=== PATIENT | male | born 1940 | race Caucasian/White ===

== ENCOUNTER 2016-07-31 19:03 | Inpatient (IN) | payer MEDICARE, BC ==
[2016-07-31 20:37] LABS: CHLORIDE,CL 102 mmol/L (98-107); SODIUM,NA 137 mmol/L (136-145)
[2016-07-31] MEDS ORDERED: cefTRIAXone 1 GM Vial IVPUSH ONE ×2 (21:24→21:29)
[2016-07-31] MEDS ORDERED: Azithromycin 250 MG Tab PO ONE ×2 (21:24→21:28)
[2016-07-31] MEDS ORDERED: Acetaminophen 325 MG Tab PO PRN (21:48)
[2016-07-31] MEDS ORDERED: Simethicone 80 MG Tab.Chew PO PRN (22:14)
[2016-07-31] MEDS ORDERED: Prochlorperazine 5 MG Tab PO PRN (22:14)
[2016-07-31] MEDS ORDERED: Nitroglycerin 0.4 MG Tab.SL SL PRN (22:14)
[2016-07-31] MEDS ORDERED: Tobramycin 0.3% Ophth Drops 5 ML Bottle EYEBOTH SCH (22:15)
[2016-07-31] MEDS ORDERED: Bisacodyl 10 MG Supp RECTAL SCH (22:15)
--- NOTE | 2016-07-31 22:34 | PCM.HP ---
H&P History of Present Illness - General Date of Service: 07/31/16 Admit Problem/Dx: Admission Diagnosis/Problem Admission Diagnosis/Problem Pneumonia Source of Information: Family, Old records, Provider - History of Present Illness Initial Comments - Free Text/Narative: 75 yo male admitted to acute care from the ER for weakness and pneumonia. Patient presented to the ER with his for concerns of weakness and decreased appetite. Work-up in the ER revealed a WBC of 33.9 and HGB of 8.4. He is seen at the [facility] in [place] last week for multiple myeloma. Received a Neulasta injection at that time. CXR did reveal a small infiltrate in the LLL for which he received a dose of Ropcehin 1 g and Azithromycin 500 mg in the ER. states he did have a little cough the last 2 days but did not cough much today. No fevers/chills or SOB. Denies congestion or rhinorrhea. No sick contacts. UA needs collected as he was unable to go in the ER. Weakness has been progressing for about 6 weeks. Did have a fall 2 months ago that resulted in a laceration to the forehead. This has healed well. No other falls since. Appetite has been decreased. Creatinine is up slightly from his lab work on 07/25. It is up to 1.3 today when it was 1.06 last week. PMH significant for MM, HTN, CAD, and opiate induced constipation. Patient was started on a clinical trial of Revlimid in 2005. Takes this medication at bedtime. unsure if this needs reported to [facility] or if he needs to discontinue. Dr. Sanders is his regular oncologist. Onset of Symptoms: Reports: gradual Duration of Symptoms: Reports: Week(s): (several) - Related Data Allergies/Adverse Reactions: Allergies Allergy/AdvReac Type Severity Reaction Status Date / Time clopidogrel bisulfate Allergy Itching Verified 07/31/16 19:50 [From Plavix] latex Allergy Itching Verified 07/31/16 19:50 levofloxacin [From Levaquin] Allergy Muscle Verified 07/31/16 19:50 Aches ticlopidine HCl [From Ticlid] Allergy Cannot Verified 07/31/16 19:50 Remember Home Medications: Home Meds Acetaminophen [Acetaminophen Extra Strength] 1,000 mg PO ASDIRECTED PRN [History] Calcium Carbonate [Calcium] 500 mg PO BID 03/14/13 [History] Gabapentin [Neurontin] 600 mg PO BEDTIME 03/14/13 [History] LORazepam 0.5 mg PO Q8H PRN 03/14/13 [History] Multivitamin [Multi-Vitamin Daily] 1 each PO DAILY 03/14/13 [History] Nitroglycerin [Nitrostat] 0.3 mg SL ASDIRECTED PRN 03/14/13 [History] Prochlorperazine [Compazine] 10 mg PO Q6H PRN 03/14/13 [History] Simethicone [Simethicone Gas Relief] 125 mg PO DAILY PRN 03/14/13 [History] oxyCODONE 3 tab PO QID PRN 03/14/13 [History] Dexamethasone 2 mg PO ASDIRECTED 07/11/14 [History] Aspirin [Ecotrin] 500 mg PO BID 07/31/16 [History] Bisacodyl 10 mg RC ASDIRECTED 07/31/16 [History] Lactulose 15 ml PO DAILY 07/31/16 [History] Lenalidomide [Revlimid] 2 cap PO DAILY 07/31/16 [History] Tobramycin Sulfate [IJD: Tobramycin 0.3% Ophth Soln] 1 drop OP ASDIRECTED [History] traZODone HCl [Trazodone HCl] 25 mg PO BEDTIME 07/31/16 [History] Past Medical History Cardiovascular History: Reports: CAD, Hypertension, [place] Oncologic (Cancer) History: Reports: Malignant melanoma, Other (see below) ( Multiple Myeloma) Social & Family History - Tobacco Use Smoking Status *Q: Former Smoker Years of Tobacco use: 10 Used Tobacco, but Quit: Yes Month Tobacco Last Used: ? Second Hand Smoke Exposure: No - Alcohol Use Days Per Week of Alcohol Use: 0 - Recreational Drug Use Recreational Drug Use: No H&P Review of Systems - Review of Systems: Review Of Systems: See Below General: Denies: Fever, Chills HEENT: Denies: Rhinitis, Sinus Congestion Pulmonary: Reports: Cough (mild). Denies: Shortness of Breath Gastrointestinal: Reports: Constipation (chronic). Denies: Abdominal Pain, Diarrhea Neurological: Reports: Weakness, Other (Denies recent falls) Exam - Exam Exam: See Below - Vital Signs Vital Signs: Last Vital Signs Temp 37.0 C 07/31/16 19:08 Pulse 75 07/31/16 19:08 Resp 18 07/31/16 19:08 BP 120/56 L 07/31/16 19:08 Pulse Ox 97 07/31/16 19:08 Weight: 52.98 kg - Exam Quality Assessment: No: Supplemental Oxygen General: Alert, Oriented, Other (Memory impaired) Lungs: Clear to Auscultation, Normal Respiratory Effort, Decreased Breath Sounds (possible decrease to LLL). No: Crackles, Rales, Rhonchi, Wheezing Cardiovascular: Regular Rate, Regular Rhythm Abdomen: Normal Bowel Sounds, Soft. No: Tenderness Extremities: No: Edema Skin: Warm, Dry, Other (Scar noted to the L side of the forehead) Neuro Extensive - Mental Status: Alert - Patient Data Result Diagrams: 07/31/16 19:44 07/31/16 19:44 *Q Meaningful Use (ADM) - VTE *Q VTE Criteria *Q: - Stroke *Q Stroke Criteria *Q: - AMI *Q AMI Criteria *Q: Problem List Initiated/Reviewed/Updated: Yes Orders Last 24hrs: Active Orders 24 hr Category Date Time Status Patient Status [ADT] Routine ADT 07/31/16 21:48 Active Intake and Output [RC] 06,18 Care 07/31/16 21:25 Active Intake and Output [RC] QSHIFT Care 07/31/16 21:49 Active Oxygen Therapy [RC] 08,20 Care 07/31/16 21:25 Active Oxygen Therapy [RC] PRN Care 07/31/16 21:49 Active Up With Assistance [RC] ASDIRECTED Care 07/31/16 21:25 Active Up With Assistance [RC] ASDIRECTED Care 07/31/16 21:48 Active VTE/DVT Education [RC] PER UNIT ROUTINE Care 07/31/16 21:25 Active Vital Signs [RC] 02,06,10,14,18,22 Care 07/31/16 21:25 Active Vital Signs [RC] Q4H Care 07/31/16 21:48 Active Regular Diet [DIET] Diet 07/31/16 Breakfast Active CBC WITH AUTO DIFF [HEME] Routine Lab 08/01/16 05:11 Ordered COMPREHENSIVE METABOLIC PN,CMP [CHEM] Routine Lab 08/01/16 05:11 Ordered Acetaminophen [Tylenol] Med 07/31/16 21:48 Active 650 mg PO Q4H PRN Azithromycin [Zithromax] Med 08/01/16 08:00 Ordered 500 mg PO DAILY Bisacodyl [Dulcolax] Med 07/31/16 22:15 Ordered 10 mg RECTAL ASDIRECTED Calcium Carbonate [Calcium] Med 08/01/16 08:00 Ordered 500 mg PO BID Gabapentin [Neurontin] Med 08/01/16 20:00 Ordered 600 mg PO BEDTIME LORazepam [Ativan] Med 07/31/16 22:14 Ordered 0.5 mg PO Q8H PRN Lactulose [Chronulac] Med 08/01/16 08:00 Ordered 15 ml PO DAILY Lenalidomide [Revlimid] Med 08/01/16 17:00 Ordered 2 cap PO DAILY Multivitamin [Multi-Vitamin Daily] Med 08/01/16 08:00 Ordered 1 each PO DAILY Nitroglycerin Med 07/31/16 22:14 Ordered 0.3 mg SL ASDIRECTED PRN Prochlorperazine [Compazine] Med 07/31/16 22:14 Ordered 10 mg PO Q6H PRN Simethicone [Simethicone Gas Relief] Med 07/31/16 22:14 Ordered 125 mg PO DAILY PRN Sodium Chloride 0.9% [Saline Flush] Med 07/31/16 21:23 Active 10 ml FLUSH ASDIRECTED PRN cefTRIAXone [Rocephin] Med 08/01/16 08:00 Ordered 1 gm IVPUSH DAILY oxyCODONE Med 07/31/16 22:14 Ordered 3 tab PO QID PRN traZODone Med 08/01/16 20:00 Ordered 25 mg PO BEDTIME Peripheral IV Insertion Adult [OM.PC] Routine Oth 07/31/16 21:23 Ordered Code Status [Resuscitation Status] Routine Resus Stat 07/31/16 21:25 Ordered Medication Orders Acetaminophen (Tylenol) 650 mg PO Q4H PRN PRN Reason: analgesia/fever Azithromycin (Zithromax) 500 mg PO DAILY EB Bisacodyl (Dulcolax) 10 mg RECTAL ASDIRECTED EB Ceftriaxone Sodium (Rocephin) 1 gm IVPUSH DAILY EB Gabapentin (Neurontin) 600 mg PO BEDTIME EB Lactulose (Chronulac) gm PO DAILY EB Lorazepam (Ativan) 0.5 mg PO Q8H PRN PRN Reason: Anxiety Non-Formulary Medication (Calcium Carbonate [Calcium]) 500 mg PO BID EB Non-Formulary Medication (Lenalidomide [Revlimid]) 2 cap PO DAILY EB Non-Formulary Medication (Multivitamin [Multi-Vitamin Daily]) 1 each PO DAILY EB Non-Formulary Medication (Nitroglycerin) 0.3 mg SL ASDIRECTED PRN PRN Reason: Chest Pain Non-Formulary Medication (Prochlorperazine [Compazine]) 10 mg PO Q6H PRN PRN Reason: Nausea Non-Formulary Medication (Simethicone [Simethicone Gas Relief]) 125 mg PO DAILY PRN PRN Reason: Gas Oxycodone HCl (Oxycodone) mg PO QID PRN PRN Reason: Pain Sodium Chloride (Saline Flush) 10 ml FLUSH ASDIRECTED PRN PRN Reason: Keep Vein Open Trazodone HCl (Trazodone) 25 mg PO BEDTIME EB Assessment/Plan Comment:: Community acquired pneumonia Multiple Myeloma Weakness HTN 1. Azithromycin and Rocephin given in the ER and ordered for tomorrow. 2. Repeat lab work in the AM 3. Will do low rate maintenance fluids of NS 75 ml/hr. Creatinine is up to 1.3 from 1.06 one week ago. Rate calculated based on weight. 4. Will obtain urine sample for UA 5. Blood cultures pending 6. Will hold dexamethasone for now as this is once weekly and will need to confirm when next dose is due. 7. Contact Oncology tomorrow regarding his Revlimid 8. Code DNR
[2016-07-31] MEDS ORDERED: Sodium Chloride 0.9% 1,000 ML IV SCH (23:00)
[2016-07-31] MEDS: oxyCODONE 5 MG Tab PO PRN (23:12)
[2016-07-31] MEDS: LORazepam 0.5 MG Tab PO PRN (23:12)
[2016-08-01] MEDS ORDERED: Bisacodyl 10 MG Supp RECTAL PRN (04:11)
[2016-08-01] MEDS: oxyCODONE 5 MG Tab PO PRN (06:06)
[2016-08-01] MEDS: Calcium Carbonate 750 MG Tab.Chew PO SCH ×2 (07:55→22:33)
[2016-08-01] MEDS: Multivitamins with Iron/Calcium/Folic Acid/Minerals Tab PO SCH (07:55)
[2016-08-01] MEDS: Azithromycin 250 MG Tab PO SCH (07:55)
[2016-08-01] MEDS: Lactulose Soln 10 GM/15 ML 15 ML UD Cup PO SCH (07:55)
[2016-08-01] MEDS: Omeprazole 20 MG Cap.CR PO SCH ×2 (09:22→16:19)
[2016-08-01] MEDS: Famotidine 20 MG/2 ML SDV IVPUSH SCH ×2 (09:22→20:59)
--- NOTE | 2016-08-01 09:46 | PN ---
Progress Note for EITAN JENSEN Date: 08/01/2016 Room #: VM.203 SUBJECTIVE: Hospital day #2, on a 75-year-old with multiple myeloma admitted with a left lower lobe pneumonia. He had been coughing for a couple of days. He had been more weak and confused. He has not required any oxygen, but he did spike a 100.8 temp during the night. He was just started on round of treatment on 07/27/2016. He takes dexamethasone and Revlimid. says the same thing happen to him about a month ago. He was more confused. He has been losing weight. He is down approximately 6 pounds since when he was seen on 07/21/2016. OBJECTIVE: VITAL SIGNS: His temperature is 100.5, pulse 66, blood pressure 127/47, respiratory rate 18, O2 of 96% on room air. General: He is in no acute distress. Heart: Regular rate and rhythm. Lungs: Sounds show decreased air entry in the left base with crackles. Abdomen: Has positive bowel sounds. It is soft. There is some tenderness in the left upper quadrant. No splenomegaly appreciated. He has been taking a lot of aspirin at home. I had recommended some Prilosec to him in the past. Mental status: He recognizes me as his doctor, but he did not know today's date. LABORATORY DATA: Lab work reviewed, showed white count improved down to 28.7. It should be noted that he did get Neulasta on 07/25/2016. Hemoglobin 8.4, which is stable from yesterday, platelets 246. Sodium 137, potassium 3.6, chloride 102, bicarbonate 26, BUN 24, creatinine 1.3 same as yesterday, calcium 7.8, albumin low at 2.1. UA did show 5-10 rbc's. ASSESSMENT AND PLAN: 1. Community-acquired pneumonia in a patient, who is on outpatient Revlimid and dexamethasone treatments. At this point, blood cultures have been sent and are pending. He will continue on IV Rocephin and oral Zithromax. Sputum culture has also been ordered. We will also get him working with incentive spirometry. Anticipate, he will need at least a couple days of IV antibiotics before he can return home on oral agents. 2. Delirium secondary to pneumonia and treatment for multiple myeloma. At this point, we are going to hold the Revlimid. I will get in touch with Dr. Sanders about what to do with the dexamethasone that would be due Thursday. We will get him up and working with PT. 3. History of coronary artery disease and cardiomyopathy. I am going to stop IV fluids after this liter. He is now eating. 4. Chronic pain secondary to some lumbar radiculopathy. He has been on oxycodone 15 mg 4 times a day scheduled for years through Oncology, go ahead and schedule this today. 5. Insomnia. He takes just 12.5 mg of trazodone at night to sleep. 6. Anxiety. He has been on Ativan shelter. 7. Abdominal pain with anemia. The patient has been using a significant amount of aspirin. I am going to go ahead and schedule him on oral Prilosec and IV Pepcid. Repeat all lab work tomorrow and check stool for blood 8. For deep vein thrombosis prophylaxis, he is on sequential compression device due to concern for bleeding. MKA: 08/01/2016 08:54:17 MODL: 08/01/2016 09:33:12 /[id number] MTDWing
[2016-08-01] MEDS: oxyCODONE 5 MG Tab PO SCH ×3 (11:40→20:59)
[2016-08-01] MEDS ORDERED: LENALIDOMIDE PO SCH (17:00)
[2016-08-01] MEDS ORDERED: traZODone 50 MG Tab PO SCH (20:00)
[2016-08-01] MEDS ORDERED: Gabapentin 300 MG Cap PO SCH (20:00)
--- NOTE | 2016-08-01 20:11 | ER ---
Date of Service: 07/31/2016 SUBJECTIVE: Fantasma presents to the emergency room with complaints of weakness and fatigue. He has also been experiencing decreased appetite. The patient has a history of multiple myeloma and is currently on a clinical trial of up oral chemotherapy. He did receive a Neulasta shot on Thursday. He is being followed by Dr. Sanders at [facility]. The patient states that he has been experiencing some mild cough for approximately the past 2 days. The patient's states that he has been experiencing significant decrease in appetite and has not been getting up to the bathroom and has instead been going into his Attends. PAST MEDICAL HISTORY: 1. Multiple myeloma. 2. Coronary artery disease. 3. Hypertension. MEDICATIONS: 1. Acetaminophen. 2. Calcium carbonate. 3. Gabapentin. 4. Lorazepam. 5. Multivitamin. 6. Compazine. 7. Simethicone. 8. Oxycodone. 9. Dexamethasone. 10.Aspirin. 11.Bisacodyl. 12.Lactulose. 13.Revlimid. 14.Trazodone. ALLERGIES: Clopidogrel, levofloxacin, latex, and Ticlid. REVIEW OF SYSTEMS: General: Please see history of present illness. HEENT: No sore throat, rhinorrhea, or congestion. Respiratory: Positive for cough times several days. Denies any significant shortness of breath. Chest: He does have some discomfort to his right anterior lower ribs. Cardiac: Denies any substernal chest pain. No jaw, arm, neck, or back pain. Abdomen: Denies any abdominal discomfort. GI: No nausea, vomiting, or diarrhea. : No melena, hematochezia, or hematemesis. Neurologic: No fainting, blackouts, lightheadedness. PHYSICAL EXAMINATION: General: This is a 75-year-old male patient, who is in no significant distress. Vital Signs: Temperature is 37.0, pulse rate 75, blood pressure is 120/56, respiratory rate 18, O2 saturations 97% on room air. Skin: Warm, pale, and dry. HEENT. Head is normocephalic, atraumatic. Eyes, PERRLA. Extraocular movements are intact. Ears, TMs are clear. Mouth, oral mucosa is somewhat dry. No erythema or exudate noted on hypopharynx. Neck: Supple without masses. There is no lymphadenopathy. Lungs: Diminished in the bases. Heart: Regular rate and rhythm. Abdomen: Scaphoid. He is extremely thin and cachectic. Extremities: Without edema. Neurologic: He is alert and answers most questions appropriately, but according to his , he is somewhat confused. LABORATORY DATA: WBCs 33.9, hemoglobin is 8.4, platelets are 239. He did have 91% neutrophils, 2% bands. PT is 12.8, INR is 1.1. Comprehensive metabolic panel was obtained. Sodium is 137, potassium is 3.6, chloride is 102, bicarb is 27, BUN is 24, creatinine is 1.3. Creatinine clearance is 37.92. GFR is 54, glucose is 154, lactic acid is 0.9, calcium is 8.1, corrected calcium is 9.46, total bilirubin is 0.4, AST is 11, ALT is 19, alkaline phosphatase is 191, CK is 113. Troponin I was less than 0.017. C-reactive protein is 30.8, albumin is 2.3. Urinalysis was obtained. Specific gravity is 1.020. This is after approximately a liter of normal saline. He was negative for nitrites and leukocyte esterase. He did have moderate occult blood and 100 protein. Specific gravity is 1.020. PA and lateral chest x-ray was obtained. He does have evidence of what appears to be left lower lobe infiltrate. ASSESSMENT: Community-acquired pneumonia. PLAN: The patient was given Rocephin 1 g IV and azithromycin 500 mg p.o. here in the emergency room. The patient will be admitted acutely. Again, he is extremely cachectic from his multiple myeloma. The patient's is concerned that she would not be able to take care of the patient at home due to his severe weakness. I did speak with Madhavi Serrano who will admit the patient and the patient will subsequently be followed by Dr. Inessa Sorenson. The patient is a code level 2 with do not intubate, do not resuscitate. MWK: 08/01/2016 14:08:22 MODL: 08/01/2016 20:01:49 /[id number]
[2016-08-01] MEDS: cefTRIAXone 1 GM Vial IVPUSH SCH (20:58)
[2016-08-01] MEDS: traZODone 50 MG Tab PO SCH (20:58)
[2016-08-01] MEDS: Sodium Chloride 0.9% 10 ML Syringe FLUSH PRN ×2 (20:58→21:00)
[2016-08-02] MEDS: Omeprazole 20 MG Cap.CR PO SCH ×2 (06:55→16:55)
[2016-08-02] MEDS: Azithromycin 250 MG Tab PO SCH (08:15)
[2016-08-02] MEDS: Lactulose Soln 10 GM/15 ML 15 ML UD Cup PO SCH (08:15)
[2016-08-02] MEDS: Multivitamins with Iron/Calcium/Folic Acid/Minerals Tab PO SCH ×2 (08:16→08:23)
[2016-08-02] MEDS: oxyCODONE 5 MG Tab PO SCH ×4 (08:16→20:15)
[2016-08-02] MEDS: Sodium Chloride 0.9% 10 ML Syringe FLUSH PRN ×4 (08:16→20:32)
[2016-08-02] MEDS: Famotidine 20 MG/2 ML SDV IVPUSH SCH ×2 (08:16→20:14)
[2016-08-02] MEDS: Calcium Carbonate 750 MG Tab.Chew PO SCH ×2 (08:22→20:14)
[2016-08-02] MEDS ORDERED: Magnesium Hydroxide 400 MG/5 ML Susp 30 ML Cup PO PRN (09:27)
[2016-08-02] MEDS ORDERED: Docusate Sodium 100 MG Cap PO PRN (09:27)
--- NOTE | 2016-08-02 11:03 | PN ---
Progress Note for EITAN JENSEN Date: 08/02/2016 Room #: VM.203 SUBJECTIVE: The patient was admitted on 07/31/2016 with pneumonia. He has been quite weak. He has some falls prior to this. He does have problems with weakness. He has not had a bowel movement since being admitted. Does not have much of an appetite. OBJECTIVELY: Vital Signs: His temperature is 36.6, high had been 37.3 last evening. Pulse is 84, blood pressure is 130/54 which is improved from 118, respiratory rate 20, and sats are 97% on room air. General: The patient appears quite cachectic, weak, difficult time turning over in bed. His mouth has very poor dentition. Heart: Regular rate and rhythm. Lungs: Have diminished breath sounds on left base with crackles at base. Abdomen: Bowel sounds are present. It is soft. The patient is weak with rolling over in bed. LABORATORY DATA: Today came back with his hemoglobin dropped down to 7.6 from 8.4 yesterday. White blood cell count is improved to 18.1, platelets are 206, 84 segs, 6 bands, and 4 lymphocytes. Sodium 139, potassium 3.8, creatinine 1.3, which is the same since admission. GFR is 54, glucose 113, calcium is low at 7.6, but his albumin is low as well. IMPRESSION: 1. Left lower lobe pneumonia. 2. Anemia, symptomatic. 3. Multiple myeloma. 4. Constipation. 5. Some delirium which is improving. 6. Coronary artery disease with history of cardiomyopathy. 7. Chronic pain. 8. Insomnia. 9. Anxiety. PLAN: The patient will be transfused 2 units of packed RBCs. The patient was explained risks and benefits of transfusion including risk of reaction, hives, fever, does agree to proceed. In light of patient's history of coronary artery disease and cardiomyopathy we will give a Lasix between infusions to help prevent fluid overload. We will recheck a chest x-ray tomorrow as well as his lab work. We will hold off on other regular IV fluids. The patient was encouraged the use of incentive spirometry. We will also offer Colace p.r.n. as well as milk of magnesia p.r.n. GM08/02/2016 09:35:15 MODL: 08/02/2016 10:55:33 /[id number]
[2016-08-02] MEDS ORDERED: Furosemide 20 MG/2 ML VIAL IVPUSH ONE ×2 (11:35→20:00)
[2016-08-02] MEDS: LORazepam 0.5 MG Tab PO PRN ×2 (14:23→23:18)
[2016-08-02] MEDS: traZODone 50 MG Tab PO SCH (20:15)
[2016-08-02] MEDS: Gabapentin 300 MG Cap PO SCH ×2 (20:16→20:30)
[2016-08-02] MEDS: cefTRIAXone 1 GM Vial IVPUSH SCH (20:20)
[2016-08-03] MEDS: Gabapentin 300 MG Cap PO SCH ×2 (02:07→20:25)
[2016-08-03] MEDS: Omeprazole 20 MG Cap.CR PO SCH ×2 (06:16→16:07)
[2016-08-03] MEDS: oxyCODONE 5 MG Tab PO SCH ×4 (08:34→20:25)
[2016-08-03] MEDS: Lactulose Soln 10 GM/15 ML 15 ML UD Cup PO SCH (08:34)
[2016-08-03] MEDS: Azithromycin 250 MG Tab PO SCH (08:34)
[2016-08-03] MEDS: Famotidine 20 MG/2 ML SDV IVPUSH SCH ×2 (08:34→20:25)
[2016-08-03] MEDS: Sodium Chloride 0.9% 10 ML Syringe FLUSH PRN ×4 (08:34→20:26)
[2016-08-03] MEDS: Multivitamins with Iron/Calcium/Folic Acid/Minerals Tab PO SCH (08:44)
[2016-08-03] MEDS: Calcium Carbonate 750 MG Tab.Chew PO SCH ×2 (08:44→20:26)
--- NOTE | 2016-08-03 11:58 | PN ---
Progress Note for EITAN JENSEN Date: 08/03/2016 Room #: VM.203 CHIEF COMPLAINT: The patient did tolerate blood transfusions fairly well. He did become somewhat agitated last evening. Did require some Ativan, however, it did not work well to help. He did have success with bowels yesterday. He denies any pain today. His noted that he is a little bit weaker today. OBJECTIVE: Vital Signs: His temperature is 37.3, pulse 71, blood pressure is 131/60, respirations are 20, sats are 95%. General: The patient is more alert today. Heart: Regular rate and rhythm. Lungs: Have diminished breath sounds on the left base. Abdomen: Soft. He is weak with moving around. LABORATORY DATA: Today shows his white blood cell count 15.9, hemoglobin is up to 9.8, platelets are 189 with 82 segs, 4 bands, 10 lymphocytes. His sodium is 138, potassium 3.6, creatinine 1.3. GFR is 54. Alkaline phosphatase has increased to 218. Albumin is low at 1.8. IMPRESSION: 1. Community-acquired pneumonia. 2. Multiple myeloma. 3. Anemia, multifactorial. 4. Weakness. 5. Some delirium, which is improving. PLAN: We will offer lorazepam more often for the patient to see if this helps him settle down. Otherwise, he is encouraged to use incentive spirometry. We will continue him on IV antibiotics right now. Dr. Inessa Sorenson to return tomorrow to resume cares. We will also repeat CRP tomorrow. GM08/03/2016 10:51:51 MODL: 08/03/2016 11:49:50 /[id number]
[2016-08-03] MEDS: cefTRIAXone 1 GM Vial IVPUSH SCH (20:24)
[2016-08-03] MEDS: traZODone 50 MG Tab PO SCH (20:26)
[2016-08-03] MEDS: LORazepam 0.5 MG Tab PO PRN (20:26)
[2016-08-04] MEDS: LORazepam 0.5 MG Tab PO PRN ×3 (00:15→08:03)
[2016-08-04] MEDS: Omeprazole 20 MG Cap.CR PO SCH ×2 (04:22→06:02)
[2016-08-04 04:34] VITALS: BP 124/72
[2016-08-04] MEDS: Famotidine 20 MG/2 ML SDV IVPUSH SCH (08:03)
[2016-08-04] MEDS: oxyCODONE 5 MG Tab PO SCH (08:03)
[2016-08-04] MEDS: Lactulose Soln 10 GM/15 ML 15 ML UD Cup PO SCH (08:03)
[2016-08-04] MEDS: Azithromycin 250 MG Tab PO SCH (08:04)
[2016-08-04] MEDS: Multivitamins with Iron/Calcium/Folic Acid/Minerals Tab PO SCH (08:04)
[2016-08-04] MEDS: Calcium Carbonate 750 MG Tab.Chew PO SCH (08:04)
[2016-08-04] MEDS ORDERED: Levofloxacin 500 MG Tab PO SCH (08:30)
--- NOTE | 2016-08-05 04:00 | DISCH ---
PRIMARY DISCHARGE DIAGNOSES: 1. Community-acquired left lower lobe pneumonia. Blood cultures are negative. 2. Delirium secondary to medical condition and pneumonia. 3. Underlying multiple myeloma undergoing active treatments, currently on hold due to infection. 4. History of coronary artery disease and cardiomyopathy. The patient had elevated proBNP to 7000. He did get some Lasix with blood transfusions; however, no acute heart failure exacerbation is felt to be taking place. 5. Acute on chronic anemia with Hemoccult negative, probably due to underlying medical condition and pneumonia. 6. Chronic pain secondary to lumbar radiculopathy, on oxycodone 4 times a day. 7. Insomnia, anxiety, abdominal pain improved with Prilosec. 8. Deep venous thrombosis prophylaxis. He has been placed on sequential compression devices. REASON FOR ADMISSION: On the date of admission, this 75-year-old was brought into the ER with cough, weak and confused, found to have a left lower lobe pneumonia. He was placed on IV Rocephin and Zithromax. Sputum cultures were not able to be obtained, although he did have negative blood cultures. He was treated with IV Rocephin and Zithromax. He still had low-grade temperatures even up to 100.6 on 02:00 p.m. on the day of discharge, but his T-max during his stay was 100.8 initially. His white count was also high at 33,000; however, he had just received Neulasta and improved down to 15.1 on discharge. Hemoglobin did drop to 7.6 on 08/02/2016 given his underlying history of coronary artery disease. He was transfused 2 units of packed red blood cells with Lasix to avoid CHF. Hemoglobin was stable at 10 on discharge. Renal function remained stable at 1.3 during his stay. His proBNP was 7000 today. Legs were mildly swollen, but he did not feel any increased shortness of breath. His cough had improved and overall, he was improving. The patient; however, was quite weak still. He was unsteady, he was using the walker. He was not always following commands. He was trying to get up multiple times on his own. He was wanting to go home. His is at the bedside. We discussed having him stay for OT cognitive assessment and more physical therapy. He has agreed to stay another night for that. I also contacted his log hooker and treatments are on hold for now including his steroids. DISCHARGE PLANS AND INSTRUCTIONS: He will go over to swing bed for further therapies. PHYSICAL EXAMINATION: Vital Signs: On discharge, his temperature is 98.1, pulse 84, blood pressure 124/72, respiratory rate 20, and O2 of 95% on room air. General: He is in no acute distress. Heart: Regular rate and rhythm. S1, S2 without murmur. Lungs: Lung sounds are clear to auscultation on the right. Left lung has decreased breath sounds and crackles. Abdomen: Positive bowel sounds. Soft and nontender. Extremities: Warm and dry. Trace edema. Mental Status: He is alert. His short-term memory is very poor. He seems to recognize me. Otherwise, he did have a chest x-ray, which showed some increase in the left lower lobe pneumonia; however, this was discussed with his this is to be expected as the first x-ray was taken when he was dehydrated and the good thing is that he is off oxygen and his white count is improving. Thirty minutes spent on the discharge process. MKA: 08/04/2016 08:37:08 MODL: 08/05/2016 03:44:55 /[id number]
== END 2016-08-04 09:16 | disposition swing bed (61) | DRG 194 ==
LOC: VM.ED 19:03 → VM.MS 21:04
PROVIDERS: ADMIT Physician Assistant; ATTEND Internal Medicine
DX: J18.9 Pneumonia, unspecified organism (principal); C90.00 Multiple myeloma not having achieved remission; I42.9 Cardiomyopathy, unspecified; D62 Acute posthemorrhagic anemia; R41.0 Disorientation, unspecified; I25.10 Atherosclerotic heart disease of native coronary artery without angina pectoris; M54.16 Radiculopathy, lumbar region; G89.29 Other chronic pain; G47.00 Insomnia, unspecified; F41.9 Anxiety disorder, unspecified; R10.9 Unspecified abdominal pain; K59.00 Constipation, unspecified; R13.10 Dysphagia, unspecified
CPT/HCPCS: 36415; 36430; 71020; 80048; 80053; 81001; 82274; 82550; 83605; 83880; 84484; 85025; 85610; 86140; 86850; 86900; 86901; 86920; 86922; 87040; 93005; 96374; 97161-GP; 99284-GF; 99285; A9270-GY; J0696; J1940; J7030; J7050; P9016; S0028

== ENCOUNTER 2016-08-04 08:38 | Inpatient (IN) | payer MEDICARE, BC ==
[2016-08-04] MEDS ORDERED: Docusate Sodium 100 MG Cap PO PRN (08:39)
[2016-08-04] MEDS ORDERED: Magnesium Hydroxide 400 MG/5 ML Susp 30 ML Cup PO PRN (08:39)
[2016-08-04] MEDS ORDERED: LORazepam 0.5 MG Tab PO PRN (08:39)
[2016-08-04] MEDS ORDERED: Sodium Chloride 0.9% 10 ML Syringe FLUSH PRN (08:39)
[2016-08-04] MEDS ORDERED: Simethicone 80 MG Tab.Chew PO PRN (08:39)
[2016-08-04] MEDS ORDERED: Acetaminophen 325 MG Tab PO PRN (08:39)
[2016-08-04] MEDS ORDERED: Prochlorperazine 5 MG Tab PO PRN (08:39)
[2016-08-04] MEDS ORDERED: Bisacodyl 10 MG Supp RECTAL PRN (08:39)
[2016-08-04] MEDS ORDERED: Nitroglycerin 0.4 MG Tab.SL SL PRN (08:39)
[2016-08-04] MEDS ORDERED: Barium Sulfate 60% w/v Susp 355 ML Bottle PO ONE (12:00)
[2016-08-04] MEDS: oxyCODONE 5 MG Tab PO SCH ×3 (12:02→19:41)
[2016-08-04] MEDS: Levofloxacin 250 MG Tab PO SCH (12:02)
[2016-08-04] MEDS ORDERED: Iopamidol 612 MG/ML 100 ML Bottle IVPUSH ONE (17:19)
[2016-08-04] MEDS ORDERED: Sodium Chloride 0.9% 100 ML IV ONE (17:19)
[2016-08-04] MEDS: Omeprazole 20 MG Cap.CR PO SCH (18:02)
[2016-08-04] MEDS: Amoxicillin/Clavulanate K 875-125 MG Tab PO SCH (18:02)
[2016-08-04] MEDS: Gabapentin 300 MG Cap PO SCH (19:41)
[2016-08-04] MEDS: traZODone 50 MG Tab PO SCH (19:42)
[2016-08-04] MEDS: Calcium Carbonate 750 MG Tab.Chew PO SCH (19:43)
--- NOTE | 2016-08-04 21:04 | PN ---
Progress Note for EITAN JENSEN Date: 08/04/2016 Room #: VM.203 SUBJECTIVE: This is a 75-year-old admitted to swing bed for further therapies. He may require IV antibiotics as his x-ray was showing some pleural effusions, so I did a lateral decubitus view which did show some layering, there is small to moderate effusion still. He has not had any clinical fevers, but nursing reported a 101.2 temporal temp and then at the same moment they checked him with oral temp and it was 98.4, so I do not feel that was probably a legitimate fever. His pulse was 72, blood pressure 129/55, respiratory rate 16, and O2 of 90 on room air. The patient has been coughing less, his breathing is better, but he has continued to be confused. He thinks today is . He says I suppose I will have to go to [facility] tomorrow. He did have a swallow eval which he failed, but is able to have free water but is now on a mechanical soft diet. He will be working with speech and thickened liquids. He also was moving better with PT today. ASSESSMENT: 1. Left lower lobe pneumonia community acquired, clinically improving with improving white count, cough, and fever, however still some slight question of fever, so we will continue to monitor closely. 2. Left pleural effusion in the setting of a pneumonia could be parapneumonic, it is free flowing. We will get a CT tonight to further evaluate. 3. Delirium with underlying pneumonia. 4. History of coronary artery disease and cardiomyopathy. 5. Dysphagia. 6. Chronic pain secondary to lumbar radiculopathy. 7. Insomnia. 8. Anxiety. PLAN: At this point, the patient will continue swing bed cares. We will get a chest CT tonight, could consider thoracentesis. He is on oral Levaquin for now. Due to concern for aspiration I am adding Augmentin. Discussed with him and his . He has had some side effects like muscle aches and confusion from it in the past, but we will try it. If needed we could start IV antibiotics with Zosyn especially now with the concern for aspiration. Blood cultures were negative Sputum culture was never able to be obtained. MKA: 08/04/2016 16:26:20 MODL: 08/04/2016 20:58:32 /[id number]
[2016-08-05] MEDS: Levofloxacin 250 MG Tab PO SCH (06:22)
[2016-08-05] MEDS: Omeprazole 20 MG Cap.CR PO SCH ×2 (06:22→17:12)
[2016-08-05] MEDS: oxyCODONE 5 MG Tab PO SCH ×4 (07:59→20:01)
[2016-08-05] MEDS: Lactulose Soln 10 GM/15 ML 15 ML UD Cup PO SCH (07:59)
[2016-08-05] MEDS: Amoxicillin/Clavulanate K 875-125 MG Tab PO SCH ×2 (07:59→17:12)
[2016-08-05] MEDS: Multivitamins with Iron/Calcium/Folic Acid/Minerals Tab PO SCH (07:59)
[2016-08-05] MEDS: Calcium Carbonate 750 MG Tab.Chew PO SCH ×2 (08:00→20:01)
[2016-08-05] MEDS ORDERED: Levofloxacin 500 MG Tab PO SCH (08:30)
--- NOTE | 2016-08-05 14:29 | PN ---
Progress Note for EITAN JENSEN Date: 08/05/2016 Room #: VM.203 SUBJECTIVE: This is a 75-year-old, who was transitioned over to swing bed yesterday after an acute stay for pneumonia. Chest x-ray was showing some layering of fluid. Therefore, CT scan was done, which did show some concern for loculation. The patient underwent a thoracentesis today. He was not interested in being transferred down to [place]. We did discuss the risks and goals of the procedure including risks of worsening infection or pneumothorax or bleeding. Otherwise, the patient did have 1 questionable fever yesterday but has been afebrile since. He is not short of breath. His coughing is better. He actually said to his this morning, he would rather than stay in the hospital. He has had multiple myeloma on treatment for 11 years. He has had a chronic right hip pain from some lumbar radiculopathy. He has been on oxycodone 4 times a day. We discussed decreasing this due to his confusion; however, his pain continues. We discussed with his her ability to take him home. We discussed the possibility of hospice care. In the end, the patient did decide to continue with swing bed for another day but hopeful to return home tomorrow. I did instruct him that given his fluid he would need to undergo a procedure to remove that to get appropriate cultures to hopefully pick the right antibiotics for him right now. He is day #2 on Levaquin and Augmentin. He received IV Rocephin and Zithromax since the 07/31 which was an evening admit. OBJECTIVE: Vital Signs: The patient has temperature 98.2, pulse 49, blood pressure 113/57, respiratory rate 18, O2 94% on room air. General: He is in no acute distress. HEART: Regular rate and rhythm. Lungs: Left lung has decreased breath sounds and crackles noted. Right lung is clear. Abdomen: Positive bowel sounds. Soft and nontender. Extremities: Warm and dry. He is having some more swelling over the left foot and ankle, but no tenderness. Homans' sign is negative. ASSESSMENT: 1. Community-acquired pneumonia, left lower lobe with some concern for left upper lobe based on CT, so multi lobar pneumonia, now with pleural effusion and concern for loculation. The patient will undergo thoracentesis later today. 2. Concern for parapneumonic effusion. The patient declined transfer to [place]. 3. Delirium with underlying pneumonia, improving slightly. 4. History of coronary artery disease and cardiomyopathy, dysphagia, chronic pain secondary to lumbar radiculopathy, insomnia, and anxiety. 5. Multiple Myeloma treatment currently on hold due to medical illness PLAN: At this point, the patient will continue skilled swing bed cares to work with speech OT and PT. He is hopeful to return home as soon as possible. Social Service is also involved to put them in contact with hospice as his goals of care are to return home. I did encourage him to get stronger here so that he will be able to transition home with his . MKA: 08/05/2016 13:15:32 MODL: 08/05/2016 13:44:35 /[id number] MTDD
--- NOTE | 2016-08-05 14:29 | OR ---
This is a procedure note for thoracentesis with ultrasound guidance. TECHNIQUE: After the appropriate patient was identified, the appropriate site of the left lung with ultrasound, the area was cleaned and prepped in a sterile fashion with ChloraPrep. The area was anesthetized with lidocaine. I then was able to insert the needle into the pleural cavity to obtain some fluid. I then anesthetized the pleural space, and withdrew the needle. I made a stab incision with the scalpel and then with the thoracentesis catheter and trocar, I was able to get back into the space and withdraw fluid. I advanced the catheter, I withdrew 60 mL of fluid for lab analysis. I then hooked the patient up to the vacuum bottles and a total of 500 mL of red bloody tinged fluid was removed. It was all free flowing. The patient tolerated the procedure well. He had some coughing near the end of the procedure and some tenderness over the site where the catheter was but overall had no complications. Otherwise, he was not overly short of breath. Before the procedure, the indication for this procedure was pneumonia with parapneumonic effusion. There were a few stands of fibrillations within the ultrasound, but no loculated areas were identified. The patient otherwise has been on oral antibiotics. Culture, Gram stain, cell count, and glucose were all sent. Cytology will also be ordered. This will further direct further antibiotics. Currently is on Levaquin and oral Augmentin. was also updated at the end of the procedure. Follow up CXR was done which showed a decrease in the effusion and no pneumothorax. MKA: 08/05/2016 13:07:14 MODL: 08/05/2016 13:22:11 /[id number] ANNMARIE
[2016-08-05] MEDS: traZODone 50 MG Tab PO SCH (19:59)
[2016-08-05] MEDS: Gabapentin 300 MG Cap PO SCH (20:00)
[2016-08-06] MEDS: Omeprazole 20 MG Cap.CR PO SCH (06:21)
[2016-08-06 06:25] VITALS: BP 121/61
[2016-08-06 07:00] LABS: CHLORIDE,CL 107 mmol/L (98-107); SODIUM,NA 140 mmol/L (136-145)
[2016-08-06] MEDS: Lactulose Soln 10 GM/15 ML 15 ML UD Cup PO SCH (09:05)
[2016-08-06] MEDS: Multivitamins with Iron/Calcium/Folic Acid/Minerals Tab PO SCH (09:05)
[2016-08-06] MEDS: Amoxicillin/Clavulanate K 875-125 MG Tab PO SCH (09:05)
[2016-08-06] MEDS: oxyCODONE 5 MG Tab PO SCH (09:06)
[2016-08-06] MEDS: Calcium Carbonate 750 MG Tab.Chew PO SCH (09:07)
--- NOTE | 2016-08-07 02:06 | DISCH ---
DATE OF SWING BED ADMISSION: 08/04/2016. PRIMARY DISCHARGE DIAGNOSES: 1. Left lower lobe and left upper lobe pneumonia. Cultures negative presumed to be due to aspiration with parapneumonic effusion. 2. Delirium due to underlying pneumonia, resolved on discharge. 3. History of coronary artery disease with cardiomyopathy without congestive heart failure. 4. Dysphagia. Recommended mechanical soft pudding thickened diet on discharge. 5. Chronic pain secondary to lumbar radiculopathy into the right hip, on oxycodone. 6. Chronic insomnia. 7. Chronic anxiety. 8. Multiple myeloma, on treatment with Revlimid and dexamethasone, currently on hold due to acute illness. 9. Acute on chronic anemia, status post 2 units of packed red blood cells, on acute care, with hemoglobin at 9.0 on discharge. The peak after transfusion was 10. He had no signs of bleeding. His Hemoccult was negative. 10.Aspirin use for pain. He has not used aspirin in the hospital. He was empirically given Prilosec twice daily but this was changed to as needed on discharge, only if using aspirin. REASON FOR ADMISSION: On the date of admission, this 75-year-old had completed an acute stay for pneumonia. Followup x-ray was showing some effusion. Therefore CT was done and thoracentesis was performed on 08/05 with 500 mL of fluid drained. Gram stain on this was negative and glucose was 130 with cultures showing no growth so far. There was still a small amount of effusion left after the procedure on x-ray but white count improved down to 11.5. Patient was afebrile. He was still coughing some but it was productive only of white sputum. He is not short of breath. The patient was little bit more fatigued today but had been up working with therapy before I saw him. He overall has decreased endurance. He is quite thin and frail. He has actually lost quite a bit of weight but did maintain his weight during his admission here. DISCHARGE PLAN/INSTRUCTION: The patient will follow up with his registered nurse teacher in early August to decide on resuming treatment for myeloma. He was going to be on a break for a potential cataract surgery in August anyway. Otherwise, he will follow up with Dr. Sorenson on 09/03 as previously arranged. We will get a CBC in 1 week by [facility] to ensure that his hemoglobin is stable. He will have PT, OT, and speech on Home Health. He will complete 9 days of Augmentin. We discussed the risks of C. diff diarrhea and if he has diarrhea he will let me know right away. I would empirically start Flagyl while awaiting official results, otherwise he will do a soft diet with pudding thick liquids and free water. He will try to thicken his Ensure to get in more calories. Could consider an MRI of the back or hip but will discuss that after his followup. He has chronic pain and he will continue his oxycodone which was prescribed through [facility]. Otherwise as long as he is not taking aspirin he does not need Prilosec but if he goes back to using his aspirin he will use Prilosec. DISCHARGE PHYSICAL EXAMINATION: VITAL SIGNS: Include a temperature 97.5, pulse 83, blood pressure 121/61, respiratory rate 22, and O2 of 96 on room air. GENERAL: He is in no acute distress. HEART: Regular rate and rhythm. S1, S2 without murmur. LUNGS: Sounds are clear to auscultation bilaterally without crackles or wheezes. Left lung is now clear, previously has had crackles. EXTREMITIES: He has 1+ edema at both ankles with some soreness at the ankles but no calf pain. Homans sign is negative. He has been on KOSTAS stockings during the day and SCDs were ordered for DVT prophylaxis due to concern for bleeding and blood loss. Otherwise, his discharge creatinine was 1.0. Electrolytes were within normal limits except a calcium of 8 and his BUN had improved from 34 down to 22. MKA: 08/06/2016 09:05:06 MODL: 08/07/2016 01:58:29 /[id number]
--- NOTE | 2016-08-07 12:08 | PCM.SN ---
- Free Text/Narrative Note: addendum to d/c for HH certification Face to Face Encounter I certify that Fantasma Mullins is a 75yr old male is under my care and that I, had a [id number] encounter that meets the physician [id number] requirements with this patient on 08/06/16. The encounter with the patient was in whole or in part for the following medical condition, which is the primary reason for home health care: Respiratory Symptoms (pneumonia). I certify that, based on my findings, the following services are medically necessary home health services: Nursing, Physical therapy and Speech language pathology. Additional services that apply: occupational therapy, home health aide and secondary social studies teacher My clinical findings support the need for the services because Inability to safely get to outpatient facility for therapy due to fall risk, lack of muscle coordination and tone. Patient requires frequent rest periods due to profound weakness and endurance Further I certify that my clinical findings support that this patient is homebound (i.e absences from home require considerable and taxing effort, or are for medical reasons, or for moravian services, or infrequent, or of short duration when for other reasons) because . Certification For Home Health Service Based on above findings, I certify that this patient is confined to the home and needs intermittent usp care, physical therapy and/or speech therapy or continue to need occupational therapy. The patient is under my care , and I have initiated the establishment of the plan of care. I will periodically review the Plan of Care.
== END 2016-08-06 11:10 | disposition home health service (06) | DRG 178 ==
LOC: VM.MS 09:16
PROVIDERS: ADMIT Internal Medicine; ATTEND Internal Medicine
PROC: 0W9B4ZX Drainage of Left Pleural Cavity, Percutaneous Endoscopic Approach, Diagnostic (ICD-10-PCS; principal; 2016-08-05)
DX: J69.0 Pneumonitis due to inhalation of food and vomit (principal); C90.00 Multiple myeloma not having achieved remission; D62 Acute posthemorrhagic anemia; J90 Pleural effusion, not elsewhere classified; R41.0 Disorientation, unspecified; I25.10 Atherosclerotic heart disease of native coronary artery without angina pectoris; R13.10 Dysphagia, unspecified; M54.16 Radiculopathy, lumbar region; G89.29 Other chronic pain; Z79.899 Other long term (current) drug therapy; F51.04 Psychophysiologic insomnia; F41.9 Anxiety disorder, unspecified; Z79.82 Long term (current) use of aspirin
CPT/HCPCS: 32555; 36415; 71010; 71035; 71260; 74230; 80048; 82945; 85025; 87070; 87075; 87205; 88112; 88305; 88313; 89051; 92526-GN; 92611-GN; 97110-GP; 97116-GP; 97530-GP; 97532-GO; A9270-GY; J7050; Q9967

== ENCOUNTER 2016-12-01 17:21 | Inpatient (IN) | payer MEDICARE, BC ==
[2016-12-01] MEDS ORDERED: Morphine 2 MG/ML Syringe IVPUSH PRN (17:38)
[2016-12-01] MEDS ORDERED: Ondansetron 4 MG Tab.DIS PO PRN (17:38)
[2016-12-01] MEDS ORDERED: Lactulose Soln 10 GM/15 ML 15 ML UD Cup PO PRN (18:15)
[2016-12-01] MEDS ORDERED: Prochlorperazine 5 MG Tab PO PRN (18:15)
[2016-12-01] MEDS ORDERED: Nitroglycerin 0.4 MG Tab.SL SL PRN (18:15)
[2016-12-01] MEDS ORDERED: LORazepam 0.5 MG Tab PO PRN (18:15)
[2016-12-01] MEDS: Gabapentin 300 MG Cap PO SCH (21:00)
[2016-12-01] MEDS: oxyCODONE ER 20 MG TAB.ER PO SCH (21:00)
[2016-12-01] MEDS: Acetaminophen 500 MG Tab PO PRN (21:07)
--- NOTE | 2016-12-02 00:06 | HP ---
CHIEF COMPLAINT: Weakness. HISTORY OF PRESENT ILLNESS: This is a 76-year-old with longstanding multiple myeloma and new diagnosis of lung mass with recurrent pneumonia since earlier this summer, who comes in with his today with a chief complaint of weakness. He had been in the clinic on 11/25/2016 with increased leg swelling and 5-pound weight gain. He does have a known history of ischemic cardiomyopathy with EF of 40% back in 2010, but had declined further echoes. His weight is up another 2 pounds today. He has been taking the Lasix, which was a new medication for him, 10 mg daily. He has been peeing quite a bit. He did have a good day Thursday. He was out with family, but then he fell. At one point, he did hit his head. He is forgetful with short-term memory loss, but that is not any worse since the fall. He did not necessarily injure anything, maybe felt a little towards his right side. He states he wishes he could just go to sleep. He is followed by Palliative Care through [place], but he says he does not think he is ready for hospice yet because he is not bedbound. He and his were both quite tearful. He was also evaluated by [facility] Surgery for biopsy on this lung mass and he declined. He has not been able to get any treatments from Oncology for the multiple myeloma due to these recurrent pneumonias. He has felt warm but has not had any fevers. He still is in a lot of right hip pain, which has been ongoing for years, and he takes narcotics for it. Otherwise, he was seen by Speech Therapy, was placed on a special diet to prevent aspiration, but he has not always been complying with the exercises he was taught. Otherwise, last treatment for pneumonia was a 10-day course of Zithromax. PAST MEDICAL HISTORY: Pneumonia with thoracentesis back in August of this year on the left; urinary retention, status post mini-cath for 250 mL this last week; cognitive impairment during admit for pneumonia; aspiration into the airway; lumbar degenerative disk disease and radicular right leg pain with severe right neuroforaminal stenosis at L5-S1; constipation due to opioids, recently started on lactulose; previous compression fracture of T12; ischemic cardiomyopathy as listed above; hydrocele, status post scrotal hydrocelectomy in 12/2014; bilateral inguinal hernias; chronic anxiety; coronary artery disease with [place] in 1987; angioplasty in 1990 with a stent placement in 2006, previously took Plavix and lisinopril, but stopped due to hypotension, not felt to be a stem-cell candidate at [place] due to his decreased ejection fraction, metoprolol stopped due to low pulse; 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 SOCIAL HISTORY: Socially, the patient is . He lives at home with his . FAMILY HISTORY: Mother had heart disease. Father had diabetes and prostate cancer. Sister with heart disease. He and his do have 3 children. 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 PAST SURGICAL HISTORY: Surgically, he did have surgeries as listed above plus cataract surgery and remote back surgery with cyst removal from the lumbar area. REVIEW OF SYSTEMS: General: He has had weight gain. He has gained at least 7 pounds now in the last month where he had been losing weight before. He has had increased edema. He has had fatigue. He has noticed some warmth, but no fever or chills. HEENT: No sore throat. Cardiac: No chest pain. Respiratory: He has felt short of breath. He is denying any worsening in cough. He has had recurrent pneumonias. Abdomen: He has been constipated but no abdominal pain. Musculoskeletal: He has chronic right hip pain, otherwise all systems reviewed and found to be negative unless otherwise stated. Hematologic: He has had some anemia. Neurologic: He has had increasing weakness overall in his extremities. Mental Status: He has short-term memory loss, which is not new. PHYSICAL EXAMINATION: VITAL SIGNS: From the clinic weight 117 pounds/53.0 kg, blood pressure 96/38, respirations 16, temp 97.9, pulse 57, O2 of 97% on room air. GENERAL: He is in no acute distress. Heart: Regular rate and rhythm. S1, S2 without murmur. LUNGS: Lung sounds are clear to auscultation over the right lung, decreased air entry over the left lung base, but no crackles or wheezes noted. Abdomen: Positive bowel sounds. Soft and nontender. EXTREMITIES: Warm and dry. He has 2+ edema to the mid lees. Mental Status: He is alert. He is orientated x3. He recognizes me. He is tearful. He is not necessarily wanting to go into the hospital, but he understands his is not able to care for him completely at this time at home, and he wants to get a little stronger to prevent falling. LABORATORY DATA: Lab work reviewed from the clinic. ProBNP was 7256 done at [facility]. White count 21.4, hemoglobin 7.2, platelets 511. Glucose 143, potassium 4.4, sodium 134, BUN 22, creatinine 1.19, bicarb 27, calcium 8.1. White count was 22,000 also on 01/13, and on 12/31 it was 13. IMAGING DATA: Chest x-ray shows a left lower lobe mass. No significant effusion noted on lateral view. ASSESSMENT: 1. Acute on chronic anemia, probably some hemodilution from heart failure contributing. The patient is symptomatic with weakness. We will also check a Hemoccult to ensure he has no active bleeding. At this point, we will admit him. We will type and screen and transfuse 1 unit of packed red blood cells. We do understand that blood may not be available at [facility] as he had trouble getting a match in July, but he is stable and we can wait 24 hours. He is not agreeable to being transferred to [place] otherwise. 2. Left lower lobe lung mass since back in July when he had pneumonia, most likely cancer, but he is declining any further workup or treatment. Currently, they are strongly considering hospice. 3. Multiple myeloma, longstanding. Treatments on hold due to recurrent infections. 4. Coronary artery disease without any angina currently. I am going to check a troponin. 5. Acute on chronic systolic heart failure exacerbation with known EF in the past to 40%. We will need to watch for heart failure worsening closely, especially with giving blood. We may need to give him some IV Lasix. 6. Chronic pain related to myeloma and radiculopathy. We will continue his home oxycodone and also have IV morphine available. 7. Chronic anxiety. We will continue Ativan as needed. 8. Confusion related to pain and illness. We will have social security benefits interviewer involved for discharge planning and support. 9. Constipation. We will continue lactulose. PLAN: At this point, the patient is admitted for acute cares. He is on Neurontin that can cause swelling as well, but he has been taking this roasterman. He does have a history of decreased ejection fraction. We will monitor and treat him closely for anemia and heart failure. At this point, I am going to do bladder scans to ensure no urinary residual. I will hold off on any DVT prophylaxis and check a stool for occult blood, although I think his anemia may be related to underlying malignancy. We will try to treat him as best we can, maybe get him up and working with PT, so he can go home with family and potentially hospice. ROZ: 12/01/2016 17:56:00 MODL: 12/01/2016 23:59:30 /[id number]
[2016-12-02] MEDS: Acetaminophen 500 MG Tab PO PRN (05:55)
[2016-12-02 07:16] LABS: CHLORIDE,CL 101 mmol/L (98-107); SODIUM,NA 136 mmol/L (136-145)
[2016-12-02] MEDS: oxyCODONE ER 20 MG TAB.ER PO SCH ×3 (07:31→19:36)
[2016-12-02] MEDS ORDERED: Furosemide 20 MG/2 ML VIAL IV ONE (09:25)
--- NOTE | 2016-12-02 10:06 | PN ---
Progress Note for EITAN JENSEN Date: 12/02/2016 Room #: VM.217 SUBJECTIVE: Hospital day #2: A 76-year-old admitted last evening with acute on chronic anemia and an acute systolic heart failure exacerbation with a left lung mass and probably postobstructive pneumonia. The patient was not given blood last night as he had type A negative, blood will arrive today. His hemoglobin stayed at 7.2. His leg swelling went down despite not getting any IV Lasix, but having Vasiliy stockings in place. Blood pressure was running low prior to admission. Therefore, he did not receive IV Lasix. He had an EKG which did not show any acute changes, but had a trigeminy and bigeminy beats. Magnesium and potassium level were okay. He has had no chest pain, but admits he is short of breath. He is having a cough which is productive of sputum. His temp was 101.1 this morning around 5-6 a.m. Otherwise, he has a longstanding history of multiple myeloma, but has been off treatments due to recurrent pneumonia since around July 2016. The patient also has a history of heart failure, but has not been on Lasix for several years. He has ischemic cardiomyopathy with an EF of 40% back in 2010. OBJECTIVE: Vital Signs: Today, his temp 99 this morning, blood pressure 120/64, respiratory rate 20, O2 97% on room air. General: He is in no acute distress. Heart: Regular rate and rhythm. Respiratory: Lungs sounds are decreased bilaterally, but no crackles or wheezes appreciated. Abdomen: Has positive bowel sounds. Soft and nontender. Extremities: Warm and dry with just trace edema with Vasiliy stockings in place. Bladder scan was around 200 before voiding. He has not had a bowel movement today for Hemoccult, but states he did have 1 yesterday. He is taking lactulose about every other day. LABORATORY DATA: Lab work reviewed. White count went up slightly to 24.9, hemoglobin stable at 7.2, platelets 531. Sodium 136, potassium 4.1, chloride 101, bicarb 20, BUN 20, creatinine 1.1, calcium low at 7.7, creatinine 1.1, glucose 107. Troponin negative x2 and TSH was 1.5 which is normal. ASSESSMENT AND PLAN: 1. Acute on chronic anemia symptomatic with weakness and recurrent falls. He actually had an episode of kind a kneeling down last night, but no injury. At this point, we are going to transfuse him 1 unit especially with his history of coronary artery disease and admit for heart failure. I am also going to give him some IV Lasix to avoid any fluid overload with a transfusion. 2. Left lower lobe lung mass. He is declining further treatment and biopsy. We will treat him for pneumonia. Given the fevers and left lung mass, probably a postobstructive pneumonia in place, we are going to treat him with IV Zosyn. The patient's goal is to go home. He is already on palliative care with [facility]. He probably will transition over to hospice care if he prefers not to be hospitalized, but at this point which is too weak for his to take him home. 3. Postobstructive pneumonia. We will give him IV Zosyn. He is allergic to Levaquin. I have ordered sputum cultures. 4. 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 He seems to be doing better since transitioning over to OxyContin by Oncology at the end of October. We will keep pain medications same. 5. Anxiety, chronic. He has been on lorazepam. 6. Constipation due to opioids. He seems to do well on every other day lactulose at home, it is prn here. 7. Acute systolic heart failure exacerbation. Given patient's underlying myeloma and possible lung cancer, no echos will be obtained. We will treat him symptomatically with IV Lasix. He is too hypotensive to receive any ANDRES inhibitors and beta-blockers as these have been stopped in years past. I will also avoid aspirin due to concern for bleeding problems, although Hemoccult is pending. 8. Deep vein thrombosis prophylaxis. We have support stockings in place. I will also order SCDs. 9. History of aspiration. He has seen Speech before. At this point, we will do diet as tolerated. The plan at this point, the patient will continue acute cares. We will have blood transfusion 1 unit today. Repeat lab work tomorrow. We will give him a dose of IV Lasix. We will start incentive spirometry. We will have him up and working with PT. We will have social media content manager involved, so potentially we can arrange for discharge home with hospice tomorrow. Dr. Sarmiento will follow the patient tomorrow. She is familiar with him from seeing him in the clinic. MKA: 12/02/2016 09:33:49 MODL: 12/02/2016 10:01:20 /[id number]
[2016-12-02] MEDS: Acetaminophen 500 MG Tab PO SCH ×3 (10:45→19:35)
[2016-12-02] MEDS: Piperacillin/Tazobactam 3.375 GM in Sodium Chloride 0.9% 100 ML IV SCH ×3 (10:48→22:14)
[2016-12-02] MEDS: Gabapentin 300 MG Cap PO SCH (19:36)
[2016-12-02] MEDS: Sodium Chloride 0.9% 10 ML Syringe FLUSH PRN (22:00)
[2016-12-03] MEDS: Sodium Chloride 0.9% 10 ML Syringe FLUSH PRN (03:53)
[2016-12-03] MEDS: Piperacillin/Tazobactam 3.375 GM in Sodium Chloride 0.9% 100 ML IV SCH ×2 (03:53→10:26)
[2016-12-03 05:22] VITALS: BP 121/52
[2016-12-03 07:07] LABS: CHLORIDE,CL 102 mmol/L (98-107); SODIUM,NA 137 mmol/L (136-145)
[2016-12-03] MEDS: oxyCODONE ER 20 MG TAB.ER PO SCH ×2 (07:42)
[2016-12-03] MEDS: Acetaminophen 500 MG Tab PO SCH (07:42)
[2016-12-03] MEDS ORDERED: oxyCODONE ER 20 MG TAB.ER PO SCH (08:00)
--- NOTE | 2016-12-03 10:32 | PN ---
Progress Note for EITAN JENSEN Date: 12/03/2016 Room #: VM.217 SUBJECTIVE: The patient is feeling better and more comfortable. He is eager for discharge home. His is also present in the room and does concur with plan of care. The patient has been on Zosyn antibiotics. OBJECTIVE: Vitals Signs: His weight is 51.6 kg. Temperature is 36.4, pulse of 70, blood pressure is 121/52, respiratory rate 16, and sats are 92% on room air. General: He is alert and pleasant to visit with, lying in bed. Heart: Regular rate and rhythm. Lungs: Diminished breath sounds bilaterally. Abdomen: Soft. LABORATORY DATA: His lab today shows that his hemoglobin has improved to 8.9 after his blood transfusion; white blood cell count 23.4, slightly improved; and platelets 536. Sodium 137, potassium 3.7, and creatinine 1.1. GFR greater than 60. IMPRESSION: 1. [id number] anemia, symptomatic with recent falls, improved. 2. Left lower lung mass, declining treatment, some pneumonia present which is improving. 3. Chronic pain. 4. Anxiety. 5. Chronic constipation. 6. Congestive heart failure. 7. Deep vein thrombosis prophylaxis. PLAN: Per the patient's wishes, we will get him started on Augmentin and stop the Zosyn. He will be discharged home. Hospice will see him tomorrow to consider for hospice. The patient's status is terminal. GM12/03/2016 08:39:10 MODL: 12/03/2016 09:16:15 /[id number]
[2016-12-03] MEDS ORDERED: Amoxicillin/Clavulanate K 875-125 MG Tab PO SCH (18:00)
--- NOTE | 2016-12-04 02:18 | DISCH ---
PRIMARY DIAGNOSES: 1. Symptomatic anemia with falls. 2. Pneumonia. 3. Left lower lung mass, declining workup most likely cancerous. 4. Multiple myeloma. 5. Chronic pain due to radiculopathy of his spine with multiple myeloma. 6. Chronic anxiety. 7. Chronic constipation. 8. Systolic heart failure exacerbation. 9. History of aspiration. SUMMARY OF ADMIT H AND P: The patient is a 76-year-old male, who was seen in the clinic and found to be very weak and having problems with falls and felt to be failing outpatient therapy. He was having some leg swelling. He had been under the care of palliative care from hospice of the [facility]. The patient declined workup for mass of his lungs from CV surgery. The patient is on a special diet to prevent aspiration, but he has not been complying with his exercises that have been taught to him. His lab on admission showed his proBNP was 7256, white blood cell count 21.4, hemoglobin 7.2, glucose 143, potassium 4.4, sodium 134, BUN 22, creatinine 1.19. SUMMARY OF HOSPITAL COURSE: The patient was admitted to acute care. He was typed and crossed, however blood was not available initial day that he was admitted. He was placed on IV Zosyn for coverage for pneumonia. He is known to have some heart failure with ejection fraction of 40%. He was given some IV Lasix. Pain was controlled with morphine to be available and Ativan was continued. The patient was able to receive transfusion on 12/02/2016 and was feeling much better. LABORATORY DATA: Showed on 12/03 that his white blood cell count did improve to 23.4, hemoglobin had risen to 8.9. Sodium was 137, potassium 3.7, creatinine 1.1. GFR greater than 60. LFTs were normal. His troponin had been monitored and that had always stayed negative. Albumin was low at 1.4 so malnutrition would be another diagnosis we could say. B12 was 301. TSH was 1.5. The patient was eager for discharge home. DISCHARGE MEDICATIONS: His medications at discharge will be Tylenol 1000 mg 3 times a day, gabapentin 900 mg at bedtime, lactulose 10 g daily p.r.n., lorazepam 0.5 mg q.8 hours p.r.n., nitroglycerin 0.4 sublingual q.5 minutes x3 p.r.n., Zofran 4 mg q.4 hours p.r.n., oxycodone extended release 20 mg 1 q.12 hours and then oxycodone extended release 20 mg 1 pill daily. Will be on Augmentin 875 one pill twice a day for 10 days. Prochlorperazine 10 mg q.6 hours p.r.n. nausea. DISCHARGE INSTRUCTIONS: The patient is to do exercises for swallowing dysphagia, but regular diet. Will have a consult with hospice of the [facility], but he will still continue with hospice with palliative care. The patient will keep his appointment next week with Dr. Inessa Sorenson in the clinic. The patient's condition is terminal. He will from his current health problems in the near future. He is DNR, DNI code level status. GM12/03/2016 08:44:41 MODL: 12/04/2016 02:14:25 /[id number]
== END 2016-12-03 12:00 | disposition home or self-care (01) | DRG 811 ==
LOC: VM.MS 17:21
PROVIDERS: ADMIT Internal Medicine; ATTEND Internal Medicine
PROC: 30233N1 Transfusion of Nonautologous Red Blood Cells into Peripheral Vein, Percutaneous Approach (ICD-10-PCS; principal; 2016-12-02)
DX: D64.9 Anemia, unspecified (principal); I50.23 Acute on chronic systolic (congestive) heart failure; J18.9 Pneumonia, unspecified organism; M87.10 Osteonecrosis due to drugs, unspecified bone; C34.92 Malignant neoplasm of unspecified part of left bronchus or lung; C90.00 Multiple myeloma not having achieved remission; I11.0 Hypertensive heart disease with heart failure; R91.8 Other nonspecific abnormal finding of lung field; R29.6 Repeated falls; I25.10 Atherosclerotic heart disease of native coronary artery without angina pectoris; I10 Essential (primary) hypertension; Z95.5 Presence of coronary angioplasty implant and graft; I25.2 Old myocardial infarction; E78.5 Hyperlipidemia, unspecified; F41.9 Anxiety disorder, unspecified; I25.5 Ischemic cardiomyopathy; I95.9 Hypotension, unspecified; K59.03 Drug induced constipation; T40.2X5A Adverse effect of other opioids, initial encounter; M51.16 Intervertebral disc disorders with radiculopathy, lumbar region; T50.995A Adverse effect of other drugs, medicaments and biological substances, initial encounter; Z87.01 Personal history of pneumonia (recurrent); G89.29 Other chronic pain; Z51.5 Encounter for palliative care; Z91.19 Patient's noncompliance with other medical treatment and regimen
CPT/HCPCS: 36415; 36430; 80048; 80053; 82274; 82607; 83735; 84443; 84484; 85025; 86850; 86900; 86901; 86920; 86922; 87070; 87077; 87186; 87205; 93005; 94760; 97161-GP; A9270-GY; J1940; J2543; J7050; P9016